=== PATIENT | female | born 1965 | race Caucasian/White ===

== ENCOUNTER 2016-09-10 20:00 | Day surgery (SDC) | payer BC ==
[2016-09-07 08:27] LABS: BASOPHILS 0.5 %; BASOPHILS ABSOLUTE 0.02 10/3/uL (0.0-0.16); EOSINOPHILS 3.2 %; EOSINOPHILS ABSOLUTE 0.14 10/3/uL (0.0-0.53); HEMATOCRIT 41.7 % (36.0-48.0); HEMOGLOBIN 14.1 g/dL (12.0-16.0); IMMATURE GRANULOCYTES 0.2 %; IMMATURE GRANULOCYTES ABSOLUTE 0.01 10/3/uL (0.0-0.11); INTERNATIONAL NORMAL RATI 1.1 UNITS (-); LYMPHOCYTES 34.1 %; LYMPHOCYTES ABSOLUTE 1.51 10/3/uL (0.67-4.30); MANUAL DIFF NO %; MEAN CORPUS HGB CONC 33.8 g/dL (32.0-36.0); MEAN CORPUSCULAR HEMOGLOB 30.2 pg (26.0-34.0); MEAN CORPUSCULAR VOLUME 89.3 fL (80-100); MEAN PLATELET VOLUME 10.2 fL (9.2-13.0); MONOCYTES 7.7 %; MONOCYTES ABSOLUTE 0.34 10/3/uL (0.21-1.20); NEUTROPHILS 54.3 %; NEUTROPHILS ABSOLUTE 2.41 10/3/uL (2.02-8.40); PARTIAL THROMBO TIME 26.3 SEC (22.5-37.2); PLATELET COUNT 195 10/3/uL (150-400); PROTIME (NOT ORD) 13.7 SEC (12.0-14.5); RBC DISTRIBUTION WIDTH 13.1 % (12.0-16.0); RED CELL COUNT 4.67 10/6/uL (4.0-5.6); WHITE BLOOD CELLS 4.4 10/3/uL (4.5-10.5)
[2016-09-07 09:01] LABS: PFA (COL/EPI) 162 SEC (72-180)
--- NOTE | ~2016-09-10 | OP ---
Record Of Operation [facility] [address] [place]. [address] NAME: BRITTNEY BRAUN : 69 STATUS : PRE [facility] [place] PAT#: [id number] AGE: 50 ADM/REG DATE : MR#: [id number] REPORT SERV DATE: 09/13/16 DICTATED BY: EMIL BUTLER DATE: 09/12/16 REPORT STATUS : Draft TRANSCRIBED BY: MODLiana DATE: 09/12/16 DATE OF PROCEDURE: 09/10/2016 PREOPERATIVE DIAGNOSIS: Animation deformity, left breast reconstruction, status post latissimus dorsi reconstruction. POSTOPERATIVE DIAGNOSIS: Animation deformity, left breast reconstruction, status post latissimus dorsi reconstruction. PROCEDURE: De-neurotization of the latissimus dorsi musculature. INDICATIONS AND FINDINGS OF THE PROCEDURE: This 50-year-old female presents now many months after her definitive reconstruction. 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 The solution for this would be de-neurotization of the underlying latissimus dorsi muscle dividing the thoracodorsal nerve. DETAILS OF THE PROCEDURE: The patient was brought to the operating room, and after adequate sedation was achieved, she was prepped and draped in the usual sterile fashion for the above described procedure. The latissimus dorsi - myocutaneous transposition point was then identified in the axilla. This was infiltrated with lidocaine with epinephrine. A 5-cm incision was then made here and the dissection was carried down into the axilla. The latissimus dorsi muscular tail and insertional point on the humerus was then identified. This was subsequently divided. With division of the insertional point, then our dissection carried out exploring for the thoracodorsal neurovascular bundle. This was subsequently identified. It was proved with nerve stimulation and the thoracodorsal nerve was from the thoracodorsal artery and its venae comitantes. The thoracodorsal nerve was then excised for a length of about 2 cm. With the muscle deneurotized and then detached, the area was thoroughly irrigated with Hibiclens solution and an inferior drain was placed. Hemostasis was obtained and she was then closed with multiple layers of Monocryl through to and intracuticularly on the skin. Small changes were made reducing her nipples bilaterally. She was then dressed with dry dressings and remanded to the recovery room in stable condition. All sponge and needle counts were correct. AV/BOBBI Emil Butler M.D. / [id number] CC: Emil Butler M.D.
[~2016-09-10 20:00] MED LIST: ADVIL PO; ALEVE220 MG PO; D 5000 PO; MAG-DELAY PO; MAGNESIUM PO; MOMUD PO; MULTIVIT/MIN PO; PROBIOTIC PO; VITAMIN D1000 UNI1 PO; X5 PO
== END 2016-09-10 23:59 | disposition home or self-care (01) ==
LOC: SDC 20:00
PROVIDERS: Surgery Surgery of the Hand
PROC: 0KXG0ZZ Transfer Left Trunk Muscle, Open Approach (ICD-10-PCS; principal; 2016-09-10 07:45)
DX: N65.0 Deformity of reconstructed breast (principal); Z79.899 Other long term (current) drug therapy; Z88.0 Allergy status to penicillin
CPT/HCPCS: 85025; 85576; 85610; 85730; A9270-GY; J0690; J2250; J2270; J2405; J2550; J3010